=== PATIENT | female | born 1945 | race Caucasian/White ===

== ENCOUNTER 2018-07-19 10:32 | Outpatient (CLI) | payer MEDICARE, BC | END 2018-07-19 10:33 | disposition home or self-care (01) | LOC: BICMAMMO 10:32 | PROVIDERS: ATTEND Family Medicine | DX: Z12.31 Encounter for screening mammogram for malignant neoplasm of breast (principal); R92.1 Mammographic calcification found on diagnostic imaging of breast; Z98.82 Breast implant status | CPT/HCPCS: 77063; 77067 ==

== ENCOUNTER 2020-10-31 09:17 | Outpatient (CLI) | payer MEDICARE, BC ==
--- NOTE | 2020-10-31 10:20 | MMO ---
Bilateral MAMMO Bilat Diag [facility]. CLINICAL HISTORY: Patient is 75 years old and is seen for diagnostic exam and breast implant problem in the left breast. The patient has no family history of breast cancer. The patient has no personal history of cancer. The patient has a history of bilateral Implants in , bilateral Explantation in 2000 and bilateral Implants in 2000. VIEWS: The views performed were: bilateral craniocaudal with tomosynthesis; bilateral mediolateral oblique with tomosynthesis; and bilateral mediolateral with tomosynthesis. FILMS COMPARED: The present examination has been compared to prior imaging studies performed at [facility] on 12/08/2006, 09/04/2015, 09/14/2016 and 07/19/2018. This study has been interpreted with the assistance of computer-aided detection. MAMMOGRAM FINDINGS: The breasts are heterogeneously dense, which could obscure a lesion on mammography. Finding 1: There are stable benign appearing calcifications seen in both breasts. Finding 2: There are stable asymmetric implants seen in both breasts. Finding 3: There is stable free silicone seen in the left breast. Finding 4: There are stable intramammary lymph nodes seen in both breasts. Finding 5: There is a new area of skin thickening seen in the left breast. IMPRESSION: FINDING 2: IMPLANT FINDINGS IN BOTH BREASTS ARE MAMMOGRAPHICALLY STABLE. IF FURTHER EVALUATION OF IMPLANT INTEGRITY IS DESIRED, BREAST MRI IS RECOMMENDED. FINDING 5: NEW AREA OF SKIN THICKENING IN THE LEFT BREAST IS SUSPICIOUS. BIOPSY IS RECOMMENDED. SURGICAL CONSULTATION IS RECOMMEDED. THE RESULTS OF THIS EXAM WERE SENT TO THE PATIENT. ACR BI-RADS Category 4 - Suspicious abnormality - biopsy should be considered MAMMOGRAPHY NOTE: 1. A negative mammogram report should not delay a biopsy if a dominant of clinically suspicious mass is present. 2. Approximately 10% to 15% of breast cancers are not detected by mammography. 3. Adenosis and dense breasts may obscure an underlying neoplasm. Reported by: GIRISH CAMPA MD Electonically Signed: [id number]
--- NOTE | 2020-10-31 15:26 | BD ---
Exam: DEXA Bone Density 10/31/20 HISTORY: 75-year-old postmenopausal female for screening. COMPARISON: None. Lumbar Spine: BMD (g/cm2) T-SCORE L1 0.812 -1.6 L2 0.845 -1.7 L3 0.910 -1.6 L4 0.979 -0.7 L1-L4 0.892 -1.4 Left Femoral Neck: 0.683 -1.5 Total Proximal Femur: 0.939 0.0 Impression: Osteopenia. This patient has a ten year WHO fracture risk for a major osteoporotic fracture of 11% and hip fract ure of 3.4%. POS: AH
== END 2020-10-31 09:18 | disposition home or self-care (01) ==
LOC: BICMAMMO 09:17
PROVIDERS: ATTEND Family Medicine
DX: N63.0 Unspecified lump in unspecified breast (principal); M85.89 Other specified disorders of bone density and structure, multiple sites; R92.8 Other abnormal and inconclusive findings on diagnostic imaging of breast
CPT/HCPCS: 77066; 77080; G0279

== ENCOUNTER 2022-11-10 09:37 | Outpatient (CLI) | payer MEDICARE, BC | END 2022-11-10 09:38 | disposition home or self-care (01) | LOC: BICMAMMO 09:37 | PROVIDERS: ATTEND Family Medicine | DX: R92.8 Other abnormal and inconclusive findings on diagnostic imaging of breast (principal); Z98.82 Breast implant status | CPT/HCPCS: 77066; G0279 ==

== ENCOUNTER 2023-11-16 13:42 | Outpatient (CLI) | payer MEDICARE, BC | END 2023-11-16 13:43 | disposition home or self-care (01) | LOC: BICMAMMO 13:42 | PROVIDERS: ATTEND Family Medicine | DX: Z12.31 Encounter for screening mammogram for malignant neoplasm of breast (principal); Z98.82 Breast implant status | CPT/HCPCS: 77063; 77067 ==

== ENCOUNTER 2024-07-27 13:30 | Outpatient (CLI) | payer MEDICARE, BC | END 2024-07-27 13:31 | disposition home or self-care (01) | LOC: BICMAMMO 13:30 | PROVIDERS: ATTEND Family Medicine | DX: M85.89 Other specified disorders of bone density and structure, multiple sites (principal) | CPT/HCPCS: 77080 ==